=== PATIENT | female | born 1995 | race Caucasian/White ===

== ENCOUNTER → 2024-08-16 | Outpatient (CLI) | payer OTHER ==
--- NOTE | 2024-08-16 15:50 | US ---
EXAMINATION TYPE: US OB follow up DATE OF EXAM: 08/16/2024 COMPARISON: NONE CLINICAL INDICATION: Female, 29 years old with history of Z36.2 SCR F/U Z64.1 PROBLEMS RELA MARIA DE JESUS TO; Follow up 4CH, RVOT, LVOT from previous anatomy scan done at outside site TECHNIQUE:: Transabdominal (TA) FINDINGS: GESTATIONAL AGE / DATING Physician Established: (21 weeks/3 days) EDC: 03/19/2024 No growth performed on today?s study per ordering physician SURVEY HEART RATE: 142 bpm RHYTHM: Normal Anatomy seen: 4CH, RVOT, LVOT IMPRESSION: Single live intrauterine gestation. The visualized heart anatomy appears within normal l imits. No prior ultrasound available for comparison. [facility], , 08/16/2024 3:48 PM
== END | disposition home or self-care (01) ==
LOC: RADUSWWP 14:17
PROVIDERS: ATTEND Obstetrics & Gynecology
DX: Z36.2 Encounter for other antenatal screening follow-up (principal); Z34.90 Encounter for supervision of normal pregnancy, unspecified, unspecified trimester; Z64.1 Problems related to multiparity; Z3A.00 Weeks of gestation of pregnancy not specified
CPT/HCPCS: 76815

== ENCOUNTER → 2024-09-26 | Outpatient (CLI) | payer OTHER ==
[2024-09-26 16:00] LABS: HCT 32.6 % (37.2-46.3); HGB 10.5 g/dL (12.0-15.0); MCH 30.7 pg (27.0-32.0); MCHC 32.2 g/dL (32.0-37.0); MCV 95.3 FL (80.0-97.0); Mean Platelet Volume 10.3 FL (9.5-12.2); NRBC Per 100 WBC 0 X 10*3/uL (0.00-0.01); Platelet Count 218 X 10*3/uL (140-440); RBC 3.42 X 10*6/uL (4.10-5.20); RDW 13.2 % (11.5-14.5); WBC 6.56 X 10*3/uL (4.50-10.00)
== END | disposition home or self-care (01) ==
LOC: LABWHC1 08:54
PROVIDERS: ATTEND Obstetrics & Gynecology
DX: Z34.90 Encounter for supervision of normal pregnancy, unspecified, unspecified trimester (principal)
CPT/HCPCS: 36415; 82950; 85027; 86850; 86900; 86901